=== PATIENT | male | born 1975 | race Hispanic/Latino ===

== ENCOUNTER → 2024-12-19 | Outpatient (CLI) | payer SELFPAY ==
--- NOTE | 2024-12-19 12:59 | MRI_ITS ---
PROCEDURE: SPINE LUMBAR (ROUTINE) 12/19/2024 REASON FOR EXAM: LUMBOSACRAL STRAIN TECHNIQUE: MRI SPINE LUMBAR (ROUTINE) COMPARISON: None provided. FINDINGS: Vertebrae: Mild disc degeneration is seen at the L4-L5 level. No abnormal osseous signal is seen. No compression is noted. Alignment: No evidence of spondylolysis or spondylolisthesis. Conus Medullaris: Normal appearance, terminating at the T12-L1 level. L1-2: Unremarkable L2-3: Unremarkable L3-4: Unremarkable L4-5: Mild posterior facet and ligamentum flavum hypertrophy is seen. A mild disc bulge is seen, with superimposed mild left lateral disc protrusion. A mild degree of spinal canal stenosis is present. Mild left neural foraminal narrowing is seen. L5-S1: Unremarkable Sacrum: No significant abnormality seen, upon limited visualization. MRI/Spine Lumbar (Routine) IMPRESSION: L4-L5 degenerative disc disease as described. Reading Location: [place] [id number]
== END | disposition home or self-care (01) ==
PROVIDERS: Referring Provider Family Medicine; Visit Provider Family Medicine
DX: S39.012A Strain of muscle, fascia and tendon of lower back, initial encounter (principal)
CPT/HCPCS: 72148